=== PATIENT | male | born 1985 | race Caucasian/White ===

== ENCOUNTER 2021-05-31 07:05 | Inpatient (IN) | payer MEDICAID ==
[2021-05-25 12:10] LABS: BASOPHILS # (AUTO) 0.1 X10'3 (0-0.2); BASOPHILS % (AUTO) 0.8 % (0-1); EOSINOPHILS # (AUTO) 0.1 X10'3 (0-0.9); EOSINOPHILS % (AUTO) 0.9 % (0-6); LYMPHOCYTES # (AUTO) 1.7 X10'3 (1.1-4.8); LYMPHOCYTES % (AUTO) 19.3 % (21-51); MEAN CORPUSCULAR HEMOGLOBIN 30.1 PG (27.0-31.0); MEAN CORPUSCULAR HGB CONC 33.7 g/dL (33.0-36.5); MEAN CORPUSCULAR VOLUME 89.4 FL (78-98); MEAN PLATELET VOLUME 8.7 FL (7.4-10.4); MONOCYTES # (AUTO) 0.6 X10'3 (0-0.9); MONOCYTES % (AUTO) 6.6 % (2-12); NEUTROPHILS # (AUTO) 6.4 X10'3 (1.8-7.7); NEUTROPHILS % (AUTO) 72.4 % (42-75); PRE OP HEMATOCRIT 46.6 % (42.0-52.0); PRE OP HEMOGLOBIN 15.7 g/dL (14.0-17.9); PRE OP PLATELET COUNT 255 X10'3 (140-440); RED BLOOD COUNT 5.21 X10'6 (4.70-6.10); RED CELL DISTRIBUTION WIDTH 12.7 % (11.5-14.5)
[2021-05-25 12:24] LABS: ALBUMIN/GLOBULIN RATIO 0.9 (1.1-1.5); ALKALINE PHOSPHATASE 88 IU/L (46-116); BLOOD UREA NITROGEN 9 MG/DL (7-18); BUN/CREATININE RATIO 9.9 (5.4-32.0); CALCIUM 8.8 MG/DL (8.5-10.1); CHLORIDE 107 MMOL/L (99-107); CREATININE 0.91 MG/DL (0.60-1.10); PRE OP ANION GAP 9 (8-16); PRE OP AST 30 U/L (10-37); PRE OP BILIRUB, TOTAL 0.4 MG/DL (0.0-1.0); PRE OP GLUCOSE 96 MG/DL (70-104); PRE OP POTASSIUM 4.2 MMOL/L (3.4-5.1); PRE OP SODIUM 143 MMOL/L (135-145); TOTAL CARBON DIOXIDE 26.6 MMOL/L (24-32); TOTAL PROTEIN 8.3 G/DL (6.4-8.2); eGFR > 90 ML/MIN
[2021-05-25 13:09] LABS: PRE OP ALT 63 U/L (30-65)
[~2021-05-31] VITALS: Ht 177.8 cm; Wt 91.8 kg
[2021-05-31] VITALS (20 sets, daily range): BP systolic 114–144; BP diastolic 61–93
[~2021-05-31 07:05] MED LIST: BUPIVAcaine 0.5% inj/PF 30 ML ONE; FAMO10TA41 PO; LIDOcaine 1% 30ml preserv. free vial ONE; OMEP-50 PO; cefazolin/dext.iso 2gm/100ml IV ONE; famotidine 20mg tablet PO ONE; ringers solution, lacted 1,000 ML IV SCH
[2021-05-31] MEDS ORDERED: LIDOcaine 1% (10mg/ml) 2ml vial ONE (07:52)
[2021-05-31] MEDS ORDERED: rocuronium 10mg/ml inj IV ONE ×2 (10:01→11:25)
[2021-05-31] MEDS ORDERED: fentaNYL /PF 50mcg/ml 5ml ampule ONE (10:01)
[2021-05-31] MEDS ORDERED: midazolam 1 mg/ML 2ml injection ONE (10:01)
[2021-05-31] MEDS ORDERED: propofol inj 20 ML IV ONE (10:01)
[2021-05-31] MEDS ORDERED: proCHLORperazine 10 MG/2 ml inj IV PRN (11:30)
[2021-05-31] MEDS ORDERED: morphine 2 MG/ML inj. syringe IV PRN (11:30)
[2021-05-31] MEDS ORDERED: morphine 4 MG/ML inj SYRINge IV PRN (11:30)
[2021-05-31] MEDS ORDERED: meperidine/PF 25mg/ml syringe IV PRN ×2 (11:30)
[2021-05-31] MEDS ORDERED: ondansetron/PF 4mg/2ml inj IV PRN ×2 (11:30→12:40)
[2021-05-31] MEDS ORDERED: ringers solution, lacted 1,000 ML IV SCH (11:30)
[2021-05-31] MEDS ORDERED: ondansetron/PF 4mg/2ml inj ONE (12:26)
[2021-05-31] MEDS ORDERED: neostigmine methylsulfate 1 MG/ML 10ml vial ONE (12:26)
[2021-05-31] MEDS ORDERED: glycopyrrolate 0.2mg/ml inj ONE (12:26)
[2021-05-31] MEDS ORDERED: dexamethasone sod phosphate 4mg/ml inj. ONE (12:26)
--- NOTE | 2021-05-31 12:39 | NUR ---
Received from OR via , accompanied by Anesthesiologist DR COOMBS and report given by Anesthesiolgist. AWAKENS TO VOICE. VITALS STABLE. DRESSINGS DI. STATES ABD PAIN. ABD SOFT.
[2021-05-31] MEDS ORDERED: CADD PCA waste documentation MC PRN (12:40)
[2021-05-31] MEDS ORDERED: naloxone 0.4 mg/ml inj IV PRN (12:40)
[2021-05-31] MEDS: meperidine/PF 25mg/ml syringe IV PRN ×2 (12:55→13:14)
[2021-05-31] MEDS ORDERED: FAMO10TA41 PO (13:00)
--- NOTE | 2021-05-31 13:49 | NUR ---
Report called to receiving nurse. Transferred via BED Belongings . Special Issues communicated to receiving nurse. AWAKE AND ORIENTED. VITALS STABLE. INCISIONS DI. STATES PAIN IMPROVING. TO SURGICAL RM 346B AT THIS TIME.
[2021-05-31] MEDS: HYDROmorph./NS 0.2 mg/ml CADD 100 ML IV SCH ×7 (16:18→23:00)
--- NOTE | 2021-05-31 19:03 | NUR ---
Problems reprioritized. Patient report given, questions answered & plan of care reviewed with JUDIT Bradford.
--- NOTE | 2021-05-31 19:10 | NUR ---
Patient in room [facility]. I have received report from alban SPAIN and had the opportunity to ask questions and assume patient care.
[2021-06-01] VITALS: BP 102/78
[2021-06-01] MEDS: HYDROmorph./NS 0.2 mg/ml CADD 100 ML IV SCH ×6 (01:00→10:57)
[2021-06-01 04:11] VITALS: BP 118/74
--- NOTE | 2021-06-01 06:02 | NUR ---
patient educated in using dilaudid cadd appropriately, slept most of night . awoke sore but using cadd at time of report. Report given to alban SPAIN
[2021-06-01 06:13] LABS: ALBUMIN 3.5 G/DL (3.4-5.0); ANION GAP 9 (8-16); BLOOD UREA NITROGEN 7 MG/DL (7-18); BUN/CREATININE RATIO 9.1 (5.4-32.0); CALCIUM 8.7 MG/DL (8.5-10.1); CHLORIDE 107 MMOL/L (99-107); CREATININE 0.77 MG/DL (0.60-1.10); GLUCOSE 113 MG/DL (70-104); POTASSIUM 4.1 MMOL/L (3.5-5.1); SODIUM 142 MMOL/L (135-145); TOTAL CARBON DIOXIDE 26.3 MMOL/L (24-32); eGFR > 90 ML/MIN
[2021-06-01 06:14] LABS: BASOPHILS % (AUTO) 0.1 % (0-1); EOSINOPHILS % (AUTO) 0.1 % (0-6); HEMATOCRIT 41.3 % (42.0-52.0); HEMOGLOBIN 14.1 g/dl (14.0-17.9); LYMPHOCYTES # (AUTO) 1.2 X10'3 (1.1-4.8); LYMPHOCYTES % (AUTO) 9.3 % (21-51); MEAN CORPUSCULAR HEMOGLOBIN 30.6 PG (27.0-31.0); MEAN CORPUSCULAR HGB CONC 34.1 g/dL (33.0-36.5); MEAN CORPUSCULAR VOLUME 89.7 FL (78-98); MEAN PLATELET VOLUME 8.8 FL (7.4-10.4); NEUTROPHILS # (AUTO) 10.5 X10'3 (1.8-7.7); NEUTROPHILS % (AUTO) 82.5 % (42-75); PLATELET COUNT 230 X10'3 (140-440); RED BLOOD COUNT 4.61 X10'6 (4.70-6.10); RED CELL DISTRIBUTION WIDTH 12.7 % (11.5-14.5); WHITE BLOOD COUNT 12.7 X10'3 (4.5-11.0)
[2021-06-01 07:20] VITALS: BP 109/79
--- NOTE | 2021-06-01 07:25 | NUR ---
picked up for Esophagram
--- NOTE | 2021-06-01 11:51 | NUR ---
Nutrition consult: Pt s/p Jackie fundoplication POD #1. Pt seen at bedside for written and verbal nutrition therapy education which includes diet advancement process, tips for reducing constipation, and ONS coupons. Pt reports having Premier Protein at home in preparation for liquid diet. All questions were answered at this time. RD contact information provided and pt encouraged to reach out if needed. RN informed that education was completed. Will continue to follow. Addendum: 06/01/21 at [address] Amended: Links added.
[2021-06-01 12:00] VITALS: BP 123/81
[2021-06-01] MEDS ORDERED: acetaminophen 325mg tablet PO PRN (13:00)
--- NOTE | 2021-06-01 17:02 | NUR ---
Patient stable and appropriate for discharge home with . IV removed, all belongings taken from room. No new medications prescribed. All discharge instructions and education given and reviewed with patient, all questions answered. Diet education completed with technology sales consultant.
== END 2021-06-01 17:00 | disposition home or self-care (01) | DRG 220 ==
LOC: PAS IN 07:05 → UNDOADMIN 07:05 → PAS IN 12:47 → SUR 3N 14:05
PROVIDERS: ADMIT Surgery; ATTEND Surgery
PROC: 8E0W4CZ Robotic Assisted Procedure of Trunk Region, Percutaneous Endoscopic Approach (ICD-10-PCS; 2021-05-31)
PROC: 0DV44ZZ Restriction of Esophagogastric Junction, Percutaneous Endoscopic Approach (ICD-10-PCS; 2021-05-31)
PROC: 0BQT4ZZ Repair Diaphragm, Percutaneous Endoscopic Approach (ICD-10-PCS; principal; 2021-05-31 09:58)
DX: K44.9 Diaphragmatic hernia without obstruction or gangrene (principal); Z79.899 Other long term (current) drug therapy; Z88.0 Allergy status to penicillin; Z88.1 Allergy status to other antibiotic agents
CPT/HCPCS: 36415; 71045; 74220; 80048; 80053; 82948; 85025; 93005; A4618; G0378; J1100; J1170; J2001; J2175; J2250; J2405; J2704; J2710; J3010; J3490; J7120; U0003; U0005